=== PATIENT | female | born 1995 | race Two or more races ===

== ENCOUNTER 2019-06-06 05:40 | Inpatient (IN) | payer OTHER ==
[~2019-06-06] VITALS: Ht 165.1 cm; Wt 69.4 kg
[2019-06-06] MEDS ORDERED: PRENATAL + DHA1 EAC1 PO (07:38)
[2019-06-06] MEDS ORDERED: FE C PLUS TABL1 EACH (07:38)
[2019-06-06] MEDS ORDERED: CONCEPT DHA CA1 EACH PO (09:29)
== END 2019-06-08 11:03 | DRG 807 ==
LOC: OB/GYN 05:40 → LDR 05:40 → OB/GYN 12:23
PROVIDERS: ADMIT Obstetrics & Gynecology
PROC: 10E0XZZ Delivery of Products of Conception, External Approach (ICD-10-PCS; principal; 2019-06-06)
PROC: 4A1HXCZ Monitoring of Products of Conception, Cardiac Rate, External Approach (ICD-10-PCS; 2019-06-06)
DX: O80 Encounter for full-term uncomplicated delivery (principal); Z37.0 Single live birth; Z3A.39 39 weeks gestation of pregnancy